=== PATIENT | female | born 1960 | race Caucasian/White ===

== ENCOUNTER 2017-04-08 03:55 | Emergency (ER) | payer SELFPAY ==
[~2017-04-08] VITALS: Ht 165.1 cm; Wt 100.0 kg
[2017-04-08] MEDS ORDERED: NAPR-58 PO (04:07)
[2017-04-08] MEDS ORDERED: GABA-531 PO (04:07)
[2017-04-08] MEDS ORDERED: LISI-661 PO (04:07)
[2017-04-08] MEDS ORDERED: METF500T4 PO (04:07)
[2017-04-08] MEDS ORDERED: PANT40TA25 PO (04:07)
[2017-04-08 04:12] LABS: GLUCOSE,POINT OF CARE 108 MG/DL (70-110)
[2017-04-08] MEDS ORDERED: IBUPROFEN 800 MG TABLET PO ONE (05:00)
[2017-04-08 06:05] VITALS: BP 158/90
== END 2017-04-08 06:09 | disposition home or self-care (01) ==
LOC: EMS 03:57
DX: M79.671 Pain in right foot (principal); E11.9 Type 2 diabetes mellitus without complications; I10 Essential (primary) hypertension; M19.90 Unspecified osteoarthritis, unspecified site; Z79.899 Other long term (current) drug therapy
CPT/HCPCS: 82962; 99284